=== PATIENT | male | born 1990 | race Hispanic/Latino ===

== ENCOUNTER 2020-08-30 00:54 | Emergency (ER) | payer SELFPAY ==
[2020-08-30] MEDS ORDERED: ONDANSETRON 4 MG ODT TAB PO ONE (02:25)
[2020-08-30] MEDS ORDERED: LIDOCAINE (1%) 10 MG/1 ML VIAL 20 ML MDV INFILTRATI ONE (02:25)
[2020-08-30] MEDS ORDERED: SULFAMETHOXAZOLE/TRIMETHOPRIM 800/160MG DS TAB PO ONE (02:25)
[2020-08-30] MEDS ORDERED: IBUPROFEN 600 MG TAB PO ONE (02:25)
[2020-08-30] MEDS ORDERED: HYDROcodone/ACETAMINOPHEN 5-325 MG TAB PO ONE (02:25)
[2020-08-30] MEDS ORDERED: CLINDAMYCIN 300 MG CAP PO ONE (02:25)
--- NOTE | 2020-08-30 05:48 | Emergency Department Report ---
ED General Adult HPI - General Chief complaint: Skin/Abscess/Foreign Body Stated complaint: ABCESS Source: patient Mode of arrival: Ambulatory Limitations: No Limitations - History of Present Illness Initial comments: Patient is a 30-year-old white male with a history of chronic recurrent IV drug use, specifically using methamphetamine and heroine presents to the ED with complaint of acute onset persistent painful swollen erythematous maculopapular rash with thick purulent discharge on right antecubital area for the last 1 week, worse in the last 2 days. Patient states that the swelling, the redness, pain and discharge of worsening the last 2 days. Patient admits to frequent IV drug abuse using methamphetamine and heroin. Patient denies fever, chills, nausea, vomiting, dizziness, syncope, lightheadedness, headache, neck pain, numbness and tingling or weakness of right arm, change in vision or fall. MD Complaint: Right upper arm pain, swelling and wound -: Sudden, week(s) (1) Location: upper extremity (right upper arm and elbow) Radiation: non-radiation Severity scale (0 -10): 8 Quality: aching, sharp Consistency: constant Improves with: none Worsens with: none Associated Symptoms: denies other symptoms, loss of appetite, malaise, rash (Swollen, severely tender, erythematous maculopapular fluctuant rash on anterior right elbow and upper arm with thick purulent discharge). denies: confusion, chest pain, cough, diaphoresis, fever/chills, headaches, nausea/vomiting, shortness of breath, syncope, weakness Treatments Prior to Arrival: none - Related Data Previous Rx's Medication Instructions Recorded Last Taken Type Clindamycin [Clindamycin CAP] 300 mg PO Q8HR #60 capsule 08/30/20 Unknown Rx Ibuprofen [Motrin] 600 mg PO Q8H PRN #30 tablet 08/30/20 Unknown Rx Ondansetron [Zofran Odt] 4 mg PO Q8HR PRN #15 tab.rapdis 08/30/20 Unknown Rx Sulfamethoxazole/Trimethoprim 1 each PO Q12H #20 tablet 08/30/20 Unknown Rx [Bactrim DS TAB] traMADoL [Ultram] 50 mg PO Q6HR PRN #10 tablet 08/30/20 Unknown Rx Allergies Allergy/AdvReac Type Severity Reaction Status Date / Time No Known Allergies Allergy Unverified 04/20/21 01:32 ED Review of Systems ROS: Stated complaint: ABCESS Other details as noted in HPI Constitutional: denies: chills, fever Eyes: denies: eye pain, eye discharge, vision change ENT: denies: ear pain, throat pain Respiratory: denies: cough, shortness of breath, wheezing Cardiovascular: denies: chest pain, palpitations Endocrine: no symptoms reported Gastrointestinal: denies: abdominal pain, nausea, vomiting, diarrhea Genitourinary: denies: urgency, dysuria Musculoskeletal: arthralgia (Right elbow and upper arm pain due to erythematous maculopapular fluctuant rash with thick purulent discharge). denies: back pain, joint swelling Skin: rash (Swollen, painful, erythematous maculopapular rash on right antecubital area with thick purulent discharge), change in color. denies: lesions Neurological: denies: headache, weakness, paresthesias Psychiatric: denies: anxiety, depression Hematological/Lymphatic: denies: easy bleeding, easy bruising ED Past Medical Hx - Medications Home Medications: Home Medications Medication Instructions Recorded Confirmed Last Taken Type Clindamycin [Clindamycin CAP] 300 mg PO Q8HR #60 capsule 08/30/20 Unknown Rx Ibuprofen [Motrin] 600 mg PO Q8H PRN #30 tablet 08/30/20 Unknown Rx Ondansetron [Zofran Odt] 4 mg PO Q8HR PRN #15 tab.rapdis 08/30/20 Unknown Rx Sulfamethoxazole/Trimethoprim 1 each PO Q12H #20 tablet 08/30/20 Unknown Rx [Bactrim DS TAB] traMADoL [Ultram] 50 mg PO Q6HR PRN #10 tablet 08/30/20 Unknown Rx ED Physical Exam - General Limitations: No Limitations General appearance: alert, in no apparent distress - Head Head exam: Present: atraumatic, normocephalic, normal inspection - Eye Eye exam: Present: normal appearance, PERRL, EOMI Pupils: Present: normal accommodation - ENT ENT exam: Present: normal exam, normal orophraynx, mucous membranes moist, TM's normal bilaterally, normal external ear exam - Neck Neck exam: Present: normal inspection - Respiratory Respiratory exam: Present: normal lung sounds bilaterally. Absent: respiratory distress, wheezes, rales, rhonchi, chest wall tenderness, accessory muscle use, decreased breath sounds, prolonged expiratory - Cardiovascular Cardiovascular Exam: Present: normal rhythm, tachycardia, normal heart sounds. Absent: systolic murmur, diastolic murmur, rubs, gallop - GI/Abdominal GI/Abdominal exam: Present: soft, normal bowel sounds. Absent: tenderness, guarding, hyperactive bowel sounds, hypoactive bowel sounds, organomegaly - Extremities Exam Extremities exam: Present: normal inspection, full ROM, tenderness (Palpable severe right antecubital tenderness due to erythematous maculopapular fluctuant rash with pink purulent discharge), normal capillary refill, joint swelling. Absent: calf tenderness - Back Exam Back exam: Present: normal inspection, full ROM. Absent: tenderness, CVA tenderness (R), muscle spasm, paraspinal tenderness, vertebral tenderness - Neurological Exam Neurological exam: Present: alert, oriented X3, CN II-XII intact, normal gait, reflexes normal - Psychiatric Psychiatric exam: Present: normal affect, normal mood - Skin Skin exam: Present: warm, dry, intact, normal color, rash (Swollen, severely tender erythematous maculopapular fluctuant rash on right antecubital area with thick purulent discharge), erythema. Absent: petechiae, pallor, abrasion, ecchymosis ED Course Vital Signs 08/30/20 08/30/20 08/30/20 01:31 04:22 04:28 Temperature 98.1 F Pulse Rate 110 H Respiratory 18 19 16 Rate Blood Pressure 131/84 [Left] O2 Sat by Pulse 99 Oximetry - I & D Right Anterior Elbow Type of Procedure: Simple Site: Right antecubital area Blade Size: 11 I & D Procedure: betadine prep, sterile drapes applied, sterile dressing applied, gauze wick placed Progress: The area was cleaned thoroughly with normal saline, and sterilized with Betadine solution. The area was then anesthetized with local anesthetic lidocaine 1% infiltrated solution. When anesthesia was fully achieved, the rash was incised and drained and thick purulent copious discharge drained from the wound. The wound was then debrided extensively with normal saline and loculations broken with hemostat. The wound was then packed with quarter inch iodoform gauze. The wound was then dressed appropriately and the patient was discharged home on pain medications and oral antibiotics and advised to return to the ED in 2 days for wound recheck and packing removal. ED Medical Decision Making - Medical Decision Making This is a 30-year-old white male with a history of chronic recurrent IV drug use, specifically using methamphetamine and heroine presents to the ED with complaint of acute onset persistent painful swollen erythematous maculopapular rash with thick purulent discharge on right antecubital area for the last 1 week, worse in the last 2 days. Patient states that the swelling, the redness, pain and discharge of worsening the last 2 days. Patient admits to frequent IV drug abuse using methamphetamine and heroin. In the ED, patient is alert and oriented x3 and is not in distress but anxious and tachycardic but afebrile in triage. Patient was treated for pain in the ED and also given initial antibiotics in the ED. The abscess wound was extensively debrided, incised and drained per protocol. Patient tolerated the procedure well. The wound was then packed with iodoform quarter-inch gauze and dressed appropriately. On reevaluation, patient's pain is well controlled medication and tachycardia also resolved.. Patient was therefore discharged home on pain medications and antibiotics and advised to follow-up with his primary care physician in 3 to 5 days for reevaluation. Patient was also advised to return to the ED in 2 days for wound recheck and packing removal. Patient was otherwise advised to return to the ED immediately if symptoms get worse. - Differential Diagnosis Cellulitis; cutaneous abscess; puncture wound; folliculitis Critical care attestation.: If time is entered above; I have spent that time in minutes in the direct care of this critically ill patient, excluding procedure time. ED Disposition Clinical Impression: Cutaneous abscess of right upper extremity, Cellulitis of right upper arm, IVDU (intravenous drug user) Disposition: DC-01 TO HOME OR SELFCARE Is pt being admited?: No Does the pt Need Aspirin: No Condition: Stable Instructions: Skin Abscess, [id number], Cellulitis, Adult, [id number] Additional Instructions: Take medication with food, drink plenty of fluids and follow-up with your primary care physician in 3 to 5 days for reevaluation. Return to the ED immediately if symptoms get worse. Otherwise return to the ED in 2 days for wound recheck and packing removal Prescriptions: Sulfamethoxazole/Trimethoprim [Bactrim DS TAB] 1 each PO Q12H #20 tablet Clindamycin [Clindamycin CAP] 300 mg PO Q8HR #60 capsule Ibuprofen [Motrin] 600 mg PO Q8H PRN #30 tablet PRN Reason: Pain traMADoL [Ultram] 50 mg PO Q6HR PRN #10 tablet PRN Reason: Pain Ondansetron [Zofran Odt] 4 mg PO Q8HR PRN #15 tab.rapdis PRN Reason: Nausea Referrals: [facility] [Provider Group] - 3-5 Days Time of Disposition: 05:57 Print Language: UPPER SORBIAN
[2020-08-30 07:16] VITALS: BP 123/82
== END 2020-08-30 06:15 | disposition home or self-care (01) ==
LOC: ED 00:54
DX: L03.113 Cellulitis of right upper limb (principal); Z79.899 Other long term (current) drug therapy
CPT/HCPCS: 99282; Q0162